=== PATIENT | male | born 1985 | race Caucasian/White ===

== ENCOUNTER 2017-04-08 18:29 | Emergency (ER) | payer OTHER ==
[~2017-04-08] VITALS: Ht 175.3 cm; Wt 79.0 kg
[2017-04-08 18:33] VITALS: TEMP 36.7; Ht 175.3 cm; Wt 79.0 kg
[2017-04-08] MEDS ORDERED: OXYC-90 PO (20:15)
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
[2017-04-08 20:51] VITALS: BP 121/78; PULSE 67; O2SAT 97
== END 2017-04-08 20:51 | disposition home or self-care (01) ==
LOC: C.EDB 18:31 → C.EDD 20:51
DX: S16.1XXA Strain of muscle, fascia and tendon at neck level, initial encounter (principal); G44.209 Tension-type headache, unspecified, not intractable; R11.0 Nausea; V87.7XXA Person injured in collision between other specified motor vehicles (traffic), initial encounter; Y92.410 Unspecified street and highway as the place of occurrence of the external cause; Y99.0 Civilian activity done for income or pay